=== PATIENT | female | born 1980 | race Caucasian/White ===

== ENCOUNTER 2017-09-21 22:51 | Emergency (ER) | payer OTHER ==
[~2017-09-21] VITALS: Ht 162.6 cm; Wt 117.3 kg
[2017-09-21 22:57] VITALS: Ht 162.6 cm; Wt 117.3 kg
[2017-09-21] MEDS ORDERED: KETOROLAC 30 MG INJ IV STA (23:50)
[2017-09-22 00:37] LABS: BASOPHIL # 0.1 10^3/ul (0.0-0.1); BASOPHILS % 0.5 % (0.0-2.0); EOSINOPHILS # 0.3 10^3/ul (0.0-0.5); EOSINOPHILS % 2.7 % (0.0-7.0); HEMATOCRIT 39.6 % (37.0-47.0); HEMOGLOBIN 12.7 g/dl (12.0-16.0); LYMPHOCYTES # 2.8 10^3/ul (0.8-2.9); LYMPHOCYTES % 28.3 % (15.0-51.0); MEAN CORPUSCULAR HEMOGLOBIN 26.9 pg (29.0-33.0); MEAN CORPUSCULAR HGB CONC 32.1 g/dl (32.0-37.0); MEAN CORPUSCULAR VOLUME 83.9 fl (82.0-101.0); MEAN PLATELET VOLUME 10.3 fl (7.4-10.4); MONOCYTE # 0.7 10^3/ul (0.3-0.9); MONOCYTES % 6.9 % (0.0-11.0); NEUTROPHILS % 61.1 % (39.0-77.0); PLATELET COUNT 333 10^3/UL (140-415); RED BLOOD COUNT 4.72 10^6/ul (4.20-5.40); RED CELL DISTRIBUTION WIDTH 18.7 % (11.5-14.5); WHITE BLOOD COUNT 9.7 10^3/ul (4.8-10.8)
[2017-09-22 00:47] LABS: ADD UMIC YES; UR ASCORBIC ACID NEGATIVE (NEGATIVE); UR BILIRUBIN (Dip) NEGATIVE (NEGATIVE); UR BLOOD (Dip) 1+ mg/dL (NEGATIVE); UR CLARITY CLEAR (CLEAR); UR COLOR YELLOW (YELLOW); UR GLUCOSE (Dip) NEGATIVE (NEGATIVE); UR KETONES (Dip) NEGATIVE (NEGATIVE); UR LEUKOCYTE ESTERASE (Dip) NEGATIVE Leu/ul (NEGATIVE); UR MUCUS FEW /HPF (NONE SEEN); UR NITRITE (Dip) NEGATIVE (NEGATIVE); UR RBC 2 /HPF (0-5); UR SPECIFIC GRAVITY (Dip) 1.018 (1.003-1.030); UR SQUAMOUS EPITHELIAL CELL FEW /HPF (FEW); UR TOTAL PROTEIN (Dip) NEGATIVE (NEGATIVE); UR UROBILINOGEN (Dip) 2+ mg/dL (NEGATIVE)
[2017-09-22 01:00] LABS: ALBUMIN 3.9 g/dl (3.3-4.9); ALBUMIN/GLOBULIN RATIO 0.9; BILIRUBIN,INDIRECT 0.4 mg/dl (0-1.1); BILIRUBIN,TOTAL 0.4 mg/dl (0.2-1.3); CALCIUM 9.5 mg/dl (8.4-10.2); CREATININE 0.76 mg/dl (0.44-1.00); POTASSIUM 3.7 mmol/L (3.5-5.1); TOTAL PROTEIN 8.2 g/dl (6.1-8.1)
--- NOTE | 2017-09-22 01:58 | RADRPT ---
PROCEDURE: CT ABDOMEN/PELVIS WITHOUT CONTRAST CLINICAL INDICATION: 37-year-old female with left upper quadrant pain for 3 days. TECHNIQUE: The study was performed utilizing a [employer] VCT 64-slice CT scanner. Direct axia l sections were obtained through the abdomen and pelvis without the use of intravenous contrast mate rial. Sagittal and coronal reformations were obtained. One or more of the following dose reduction t echniques were utilized: automated exposure control, adjustment of the mA and/or kV according to pat ient's size and/or the use of iterative reconstruction technique. DICOM images are available. The im ages were reviewed on a PACS workstation. CTD/vol = 28.4 mGy; Total Exam DLP = 1800.2 mGy-cm. COMPARISON: None. FINDINGS: The lung bases are unremarkable. There is no evidence for significant pleural effusion. The liver has a normal size and contour without focal areas of abnormal density. No intrahepatic nor extrahepa tic biliary ductal dilatation is seen. Surgical clips are seen within the gallbladder fossa from bro[place] or cholecystectomy. The pancreas is without areas of abnormal attenuation. The spleen is identified and has a normal size without abnormal density. The adrenal glands are unremarkable. The kidneys ar e without abnormal density. No hydroureteronephrosis nor nephroureterolithiasis is evident. The urin can bladder contains urine. There is mild retained stool within the ascending and transverse colon w ithout obstruction. The appendix is visualized and is without abnormal thickening or surrounding in flammatory reaction. The uterus is anteflexed at and enlarged measuring 13.4 x 8.6 x 12.2 cm. There is a lobulated right ovarian cyst measuring approximately 6.3 x 5.3 x 5.7 cm on axial image 3-144. There are smaller left ovarian cyst with the largest measuring 2.6 x 3.1 x 2.7 cm on axial image 3-1 49. There is no significant pelvic free fluid. The aortoiliac vessels are without aneurysmal dilatat ion. The osseous structures are intact. IMPRESSION: 1. Status post cholecystectomy. 2. Retained stool within the proximal colon without obstruction. 3. No CT evidence for appendicitis. 4. Enlarged uterus. 5. Bilateral ovarian cysts. .Blake Chen MD, MD Date Time Electronically viewed and signed by .Blake Chen MD, on 09/22/2017 01:57 .M/
[2017-09-22] MEDS ORDERED: DICY10CA60 PO (02:08)
[2017-09-22] MEDS ORDERED: FAMO-96 PO (02:09)
--- NOTE | 2017-09-22 02:42 | ERD ---
ER Documentation Chief Complaint Chief Complaint LUQ abd pain x 3 days HPI This is a 37-year-old female presents to the ER with left upper quadrant pain that is been going on for the last 3 days. Patient states that pain is stabbing in nature and radiates to her epigastric area. She denies any chest pain or shortness of breath. Patient has not taken anything for the pain. She denies any nausea vomiting or diarrhea. She denies any fevers or chills. Patient had her gallbladder taken out approximately 3 years ago. Patient denies any trauma to the area. She denies any sore throat or any cough or cold symptoms. ROS 12 point review of systems was done, all negative except per HPI. Medications Home Meds Active Scripts Famotidine* (Pepcid*) 20 Mg Tablet, 20 MG PO BID for 4 Days, TAB Prov:RUBY IRIZARRY 09/22/17 Dicyclomine Hcl* (Bentyl*) 10 Mg Capsule, 10 MG PO QID for 5 Days, CAP Prov:RUBY IRIZARRY 09/22/17 Allergies Allergies: Coded Allergies: No Known Allergy (Unverified , 09/21/17) PMhx/Soc History of Surgery: Yes (-SECTION X 2, TUBALIGATION, AND GALLBLADDER SURG) Anesthesia Reaction: No Hx Neurological Disorder: No Hx Respiratory Disorders: No Hx Cardiac Disorders: No Hx Psychiatric Problems: No Hx Miscellaneous Medical Probl: No Hx Alcohol Use: No Hx Substance Use: No Hx Tobacco Use: No Smoking Status: Never smoker Physical Exam Vitals Vital Signs Date Time Temp Pulse Resp B/P Pulse Ox O2 Delivery O2 Flow Rate FiO2 09/21/17 22:57 98.3 90 20 161/69 98 Physical Exam GENERAL: The patient is well developed and appropriate for usual state of health , in no apparent distress. Patient is morbidly obese HEENT: Atraumatic. CHEST: Clear to auscultation bilaterally. There are no rales, wheezes or rhonchi. HEART: Regular rate and rhythm. No murmurs, clicks, rubs or gallops. ABDOMEN: Soft, nontender and nondistended. Good bowel sounds. No rebound or guarding. No gross peritonitis. No gross organomegaly or masses. No Jang sign or McBurney point tenderness. BACK: No midline or flank tenderness. NEURO: Alert and oriented. SKIN: There is no apparent rash or petechia. The skin is warm and dry. Result Diagram: 09/22/17 0008 09/22/17 0008 Results 24 hrs Laboratory Tests Test 09/21/17 23:42 09/22/17 00:08 Urine Color YELLOW Urine Clarity CLEAR Urine pH 6.0 Urine Specific [place] 1.018 Urine Ketones NEGATIVEmg/dL Urine Nitrite NEGATIVEmg/dL Urine Bilirubin NEGATIVEmg/dL Urine Urobilinogen 2+mg/dL Urine Leukocyte Esterase NEGATIVELeu/ul Urine Microscopic RBC 2/HPF Urine Microscopic WBC 2/HPF Urine Squamous Epithelial Cells FEW/HPF Urine Mucus FEW/HPF Urine Hemoglobin 1+mg/dL Urine Glucose NEGATIVEmg/dL Urine Total Protein NEGATIVEmg/dl White Blood Count 9.710^3/ul Red Blood Count 4.7210^6/ul Hemoglobin 12.7g/dl Hematocrit 39.6% Mean Corpuscular Volume 83.9fl Mean Corpuscular Hemoglobin 26.9pg Mean Corpuscular Hemoglobin Concent 32.1g/dl Red Cell Distribution Width 18.7% Platelet Count 35334^3/UL Mean Platelet Volume 10.3fl Neutrophils % 61.1% Lymphocytes % 28.3% Monocytes % 6.9% Eosinophils % 2.7% Basophils % 0.5% Nucleated Red Blood Cells % 0.0/100WBC Neutrophils # 6.010^3/ul Lymphocytes # 2.810^3/ul Monocytes # 0.710^3/ul Eosinophils # 0.310^3/ul Basophils # 0.110^3/ul Nucleated Red Blood Cells # 0.010^3/ul Sodium Level 142mmol/L Potassium Level 3.7mmol/L Chloride Level 102mmol/L Carbon Dioxide Level 30mmol/L Anion Gap 14 Blood Urea Nitrogen 12mg/dl Creatinine 0.76mg/dl Glucose Level 98mg/dl Calcium Level 9.5mg/dl Total Bilirubin 0.4mg/dl Direct Bilirubin 0.00mg/dl Indirect Bilirubin 0.4mg/dl Aspartate Amino Transf (AST/SGOT) 61IU/L Alanine Aminotransferase (ALT/SGPT) 81IU/L Alkaline Phosphatase 113IU/L Total Protein 8.2g/dl Albumin 3.9g/dl Globulin 4.30g/dl Albumin/Globulin Ratio 0.90 Lipase 118U/L Current Medications Medications (Trade) Dose Ordered Sig/Cruz Route PRN Reason Start Time Stop Time Status Last Admin Dose Admin Ketorolac Tromethamine (Toradol) 30 mg ONCE STAT IV 09/21/17 23:50 09/21/17 23:52 DC 09/22/17 00:12 [place] [id number] Radiology Main Line: [phone] DIAGNOSTIC IMAGING REPORT Patient: ANDRE GOINS : 1980 Age: 37 Sex: F MR #: [id number] DOS: 09/21/17 2350 Ordering MD: RUBY IRIZARRY PA-C Location: [facility] Room/Bed: PROCEDURE: CT ABDOMEN/PELVIS WITHOUT CONTRAST CLINICAL INDICATION: 37-year-old female with left upper quadrant pain for 3 days. TECHNIQUE: The study was performed utilizing a GE [employer] VCT 64-slice CT scanner. Direct axial sections were obtained through the abdomen and pelvis without the use of intravenous contrast material. Sagittal and coronal reformations were obtained. One or more of the following dose reduction techniques were utilized: automated exposure control, adjustment of the mA and/ or kV according to patient's size and/or the use of iterative reconstruction technique. DICOM images are available. The images were reviewed on a PACS workstation. CTD/vol = 28.4 mGy; Total Exam DLP = 1800.2 mGy-cm. COMPARISON: None. FINDINGS: The lung bases are unremarkable. There is no evidence for significant pleural effusion. The liver has a normal size and contour without focal areas of abnormal density. No intrahepatic nor extrahepatic biliary ductal dilatation is seen. Surgical clips are seen within the gallbladder fossa from prior cholecystectomy. The pancreas is without areas of abnormal attenuation. The spleen is identified and has a normal size without abnormal density. The adrenal glands are unremarkable. The kidneys are without abnormal density. No hydroureteronephrosis nor nephroureterolithiasis is evident. The urinary bladder contains urine. There is mild retained stool within the ascending and transverse colon without obstruction. The appendix is visualized and is without abnormal thickening or surrounding inflammatory reaction. The uterus is anteflexed at and enlarged measuring 13.4 x 8.6 x 12.2 cm. There is a lobulated right ovarian cyst measuring approximately 6.3 x 5.3 x 5.7 cm on axial image 3- 144. There are smaller left ovarian cyst with the largest measuring 2.6 x 3.1 x 2.7 cm on axial image 3-149. There is no significant pelvic free fluid. The aortoiliac vessels are without aneurysmal dilatation. The osseous structures are intact. IMPRESSION: 1. Status post cholecystectomy. 2. Retained stool within the proximal colon without obstruction. 3. No CT evidence for appendicitis. 4. Enlarged uterus. 5. Bilateral ovarian cysts. .Blake Chen MD, MD Date Time Electronically viewed and signed by .Blake Chen MD, MD on 09/22/2017 01:57 .M/ CC: RUBY IRIZARRY Procedures/MDM This is a 37-year-old female presents to the ER with left upper quadrant abdominal pain. At this time there is no evidence of acute abdominal emergency. Her physical examination is benign she is afebrile and well- appearing. Patient does have cysts in bilateral ovaries, however she does not have any pelvic pain. Likely not the cause of her left upper quadrant abdominal pain. She for splenic rupture is low. Will be sent home with famotidine and with Bentyl. She is to follow-up with her primary care doctor within 1-2 days return to ER sooner if symptoms worsen. My medical decision making sure with the patient she understands and agrees with plan. Departure Diagnosis: Primary Impression: Abdominal pain Condition: Stable Patient Instructions: Abdominal Pain, What Are Ovarian Cysts? Additional Instructions: Call your primary care doctor TOMORROW for an appointment during the next 1-2 days.See the doctor sooner or return here if your condition worsens before your appointment time. RUBY IRIZARRY Sep 22, 2017 02:42
== END 2017-09-22 02:25 | disposition home or self-care (01) ==
LOC: FTE 22:51
DX: R10.12 Left upper quadrant pain (principal); R10.2 Pelvic and perineal pain
CPT/HCPCS: 74176; 80053; 81001; 83690; 85025; J1885; 36415; 96374

== ENCOUNTER 2019-08-27 19:30 | Emergency (ER) | payer OTHER, BC ==
[~2019-08-27] VITALS: Ht 149.9 cm; Wt 123.7 kg
[~2019-08-27 19:30] MED LIST: DICY10CA40 PO; FAMO-96 PO; NITR-58 PO
[2019-08-27 19:55] VITALS: Ht 149.9 cm; Wt 123.7 kg
[2019-08-28] MEDS ORDERED: AL HYDROX/MG HYDROX/SIMETH 30 ML CUP PO ONE (01:00)
[2019-08-28] MEDS ORDERED: LIDOCAINE 2% VISC 10 ML CUP PO ONE (01:00)
[2019-08-28 02:21] VITALS: BP 112/77; PULSE 78; RESP 16
== END 2019-08-28 02:22 | disposition home or self-care (01) ==
LOC: E/R 19:30
DX: R10.13 Epigastric pain (principal)
CPT/HCPCS: 36415; 80053; 81001; 81025; 83690; 85025; Z7502; Z7610; 99283